=== PATIENT | male | born 1970 | race Caucasian/White ===

== ENCOUNTER 2019-07-27 03:05 | Observation (INO) ==
[2019-07-27] MEDS ORDERED: Aspirin 81 MG TAB.CHEW PO ONE (03:12)
[2019-07-27 03:42] LABS: Basophils # 0.1 K/mcL (0.0-0.2); Basophils % 0.4 %; Eosinophils # 0.2 K/mcL (0.0-0.6); Eosinophils % 1.9 %; Hematocrit 40.3 % (37.5-50.1); Hemoglobin 14.5 g/dL (12.9-16.9); Immature Granulocytes % 0.4 % (0-4); Lymphocytes # 2.5 K/mcL (0.6-4.6); Lymphocytes % 21.7 %; Mean Corpuscular Volume 86.1 fL (83.0-100.0); Mean Platelet Volume 9.5 fL (9.4-12.4); Monocytes # 1.2 K/mcL (0.0-1.3); Monocytes % 10.2 %; Neutrophils # 7.4 K/mcL (1.6-8.9); Platelet Count 262 K/mcL (140-400); Red Blood Count 4.68 M/mcL (4.19-5.50); Red Cell Distribution Width 11.8 % (11.5-14.5); Segmented Neutrophils % 65.4 %; White Blood Count 11.3 K/mcL (4.3-11.1)
[2019-07-27 03:52] LABS: INR 1.1; Prothrombin Time 12.5 Seconds (9.4-12.1)
[2019-07-27 03:55] LABS: Activated Partial Thrombo Time 30.8 Seconds (26.0-36.0)
[2019-07-27 04:12] LABS: BUN/Creatinine Ratio 19 (6-26); Blood Urea Nitrogen 23 mg/dL (6-20); Calcium 9.4 mg/dL (8.6-10.3); Carbon Dioxide 29 mEq/L (23-29); Chloride 99 mEq/L (98-107); Glucose 92 mg/dL (70-105); Osmolality,Calculated 285 (280-300); Potassium 3.2 mEq/L (3.5-5.1); Sodium 136 mEq/L (136-145); Troponin I < 0.03 ng/mL (< 0.04); eGFR For African Americans > 60 (> 60); eGFR For Non-African Americans > 60 (> 60)
[2019-07-27] MEDS ORDERED: Lisinopril 20 MG TABLET PO SCH (09:00)
[2019-07-27] MEDS ORDERED: Budesonide/Formoterol 80/4.5 1 PUFF INH IH SCH (10:00)
[2019-07-27 15:24] VITALS: BP 101/64
== END 2019-07-27 17:39 | disposition home or self-care (01) ==
LOC: EMEROOARM 03:05 → 3BNU 03:05 → SUATTDRO 05:31 → 3BNU 05:47
PROVIDERS: ADMIT Family Medicine; ATTEND Internal Medicine

== ENCOUNTER 2020-12-06 18:54 | Observation (INO) ==
[2020-12-06 21:54] LABS: Hemoglobin 14.8 g/dL (12.9-16.9); Mean Corpuscular HGB Conc 34.4 g/dL (31.6-35.5); Mean Platelet Volume 10.7 fL (9.4-12.4); Platelet Count 281 K/mcL (140-400); Red Blood Count 4.94 M/mcL (4.19-5.50); Red Cell Distribution Width 12.1 % (11.5-14.5); White Blood Count 8.5 K/mcL (4.3-11.1)
[2020-12-06 22:03] LABS: BUN/Creatinine Ratio 17 (6-26); Blood Urea Nitrogen 18 mg/dL (6-20); Calcium 9.3 mg/dL (8.6-10.3); Carbon Dioxide 30 mEq/L (23-29); Chloride 98 mEq/L (98-107); Glucose 132 mg/dL (70-105); Osmolality,Calculated 288 (280-300); Sodium 137 mEq/L (136-145); eGFR For African Americans > 60 (> 60); eGFR For Non-African Americans > 60 (> 60)
[2020-12-06] MEDS ORDERED: Potassium Chloride Elixir 20 MEQ/15 ML UDC PO ONE (22:17)
[2020-12-06] MEDS ORDERED: Isovue-370 500 ML BOTTLE IVP ONE (22:19)
[2020-12-06] MEDS ORDERED: Naloxone 0.4 MG/ML INJ IVP PRN (23:58)
[2020-12-07 04:53] LABS: Hematocrit 40.7 % (37.5-50.1); Hemoglobin 13.9 g/dL (12.9-16.9); Mean Corpuscular HGB Conc 34.2 g/dL (31.6-35.5); Mean Corpuscular Hemoglobin 29.8 pg (28.0-33.3); Mean Corpuscular Volume 87.3 fL (83.0-100.0); Mean Platelet Volume 10.4 fL (9.4-12.4); Platelet Count 264 K/mcL (140-400); Red Blood Count 4.66 M/mcL (4.19-5.50); Red Cell Distribution Width 12.3 % (11.5-14.5); White Blood Count 9.1 K/mcL (4.3-11.1)
[2020-12-07 05:11] LABS: BUN/Creatinine Ratio 16 (6-26); Blood Urea Nitrogen 15 mg/dL (6-20); Calcium 9.2 mg/dL (8.6-10.3); Carbon Dioxide 31 mEq/L (23-29); Chloride 100 mEq/L (98-107); Glucose 142 mg/dL (70-105); Osmolality,Calculated 289 (280-300); Potassium 3.7 mEq/L (3.5-5.1); Sodium 138 mEq/L (136-145); Troponin I < 0.03 ng/mL (< 0.04); eGFR For African Americans > 60 (> 60); eGFR For Non-African Americans > 60 (> 60)
[2020-12-07] MEDS ORDERED: Pantoprazole 40 MG VIAL IVP SCH (06:00)
[2020-12-07 06:36] VITALS: BP 103/80
== END 2020-12-07 11:15 | disposition home or self-care (01) ==
LOC: EMEROOARM 18:54 → 2NENU 18:54 → SUATTDRO 22:55 → 2NENU 22:56
PROVIDERS: ADMIT Internal Medicine; ATTEND Internal Medicine

== ENCOUNTER 2021-06-30 06:34 | Inpatient (IN) ==
[2021-06-30] MEDS ORDERED: CeFAZolin Syr 2,000MG/20 ML 2,000 MG/20 ML SYRINGE IVPB ONE (07:16)
[2021-06-30] MEDS ORDERED: Ringers Solution, Lactated 1,000 ML IVC SCH (07:30)
[2021-06-30] MEDS ORDERED: *HR* Rocuronium Bromide 50 MG/5 ML VIAL ONE ×2 (07:52→09:20)
[2021-06-30] MEDS ORDERED: *HR* Midazolam HCl 2 MG/2 ML VIAL ONE (07:52)
[2021-06-30] MEDS ORDERED: *HR* FentaNYL (PF) 100 MCG/2 ML VIAL ONE ×2 (07:52→08:42)
[2021-06-30] MEDS ORDERED: *HR* Succinylcholine 200 MG/10 ML VIAL IVP ONE (07:52)
[2021-06-30] MEDS ORDERED: Lidocaine -MPF 2% 5 ML VIAL ONE (07:52)
[2021-06-30] MEDS ORDERED: *HR* Propofol 200 MG/20 ML VIAL IVP ONE (07:53)
[2021-06-30] MEDS ORDERED: Promethazine 6.25 MG in Water for inj. (sterile) 20 ML IVPB PRN (08:00)
[2021-06-30] MEDS ORDERED: *HR* OxyCODONE Immed Rel 5 MG TABLET PO PRN (08:00)
[2021-06-30] MEDS ORDERED: Ondansetron 4 MG/2 ML VIAL IVP PRN (08:00)
[2021-06-30] MEDS ORDERED: EPHEDrine 50 MG/ML VIAL ONE (08:28)
[2021-06-30] MEDS ORDERED: Ondansetron 4 MG/2 ML VIAL ONE (08:30)
[2021-06-30] MEDS ORDERED: *HR* Labetalol 20 MG/4 ML SYRINGE IVP ONE (08:53)
[2021-06-30] MEDS ORDERED: Sugammadex Sodium 200 MG/2 ML VIAL IV ONE (09:15)
[2021-06-30] MEDS: *HR* HYDROmorphone PF 0.5 MG/0.5 ML SYRINGE IVP PRN ×4 (10:36→10:51)
[2021-06-30] MEDS ORDERED: *HR* HYDROmorphone PF 0.5 MG/0.5 ML SYRINGE IVP PRN (11:58)
[2021-06-30] MEDS: *HR* HYDROmorphone PCA *PREMADE* 20 MG/1MG/ML (20mL) PCA VIAL IVC SCH (12:16)
[2021-06-30] MEDS ORDERED: *HR* HYDROmorphone PCA *PREMADE* 20 MG/1MG/ML (20mL) PCA VIAL IVC SCH (15:20)
[2021-06-30] MEDS: *HR* Heparin 5,000 UNIT/ML VIAL SQ SCH ×2 (15:48→20:52)
[2021-06-30] MEDS: 0.9 % Sodium Chloride 1,000 ML IVC SCH (15:49)
[2021-06-30] MEDS: Primidone 50 MG TABLET PO SCH ×2 (15:49→20:51)
[2021-06-30] MEDS: Pantoprazole 40 MG VIAL IVP SCH (20:51)
[2021-06-30] MEDS ORDERED: NON-FORMULARY MEDICATION 1 EACH EACH (Fluticasone/Salmeterol [Advair 100-50 Diskus] 1 EACH IH SCH (21:00)
[2021-07-01] MEDS: Budesonide/Formoterol 160/4.5 1 PUFF INH IH SCH ×3 (00:17→20:45)
[2021-07-01 03:32] LABS: Hematocrit 41.3 % (37.5-50.1); Hemoglobin 14.4 g/dL (12.9-16.9); Mean Corpuscular HGB Conc 34.9 g/dL (31.6-35.5); Mean Corpuscular Hemoglobin 30.6 pg (28.0-33.3); Mean Corpuscular Volume 87.9 fL (83.0-100.0); Mean Platelet Volume 10.8 fL (9.4-12.4); Platelet Count 328 K/mcL (140-400); Red Cell Distribution Width 12.3 % (11.5-14.5); White Blood Count 17.5 K/mcL (4.3-11.1)
[2021-07-01 03:53] LABS: BUN/Creatinine Ratio 18 (6-26); Blood Urea Nitrogen 22 mg/dL (6-20); Calcium 8.5 mg/dL (8.6-10.3); Carbon Dioxide 29 mEq/L (23-29); Chloride 97 mEq/L (98-107); Glucose 118 mg/dL (70-105); Magnesium 1.2 mg/dL (1.6-2.6); Osmolality,Calculated 288 (280-300); Potassium 3.6 mEq/L (3.5-5.1); Sodium 137 mEq/L (136-145); eGFR For African Americans > 60 (> 60); eGFR For Non-African Americans > 60 (> 60)
[2021-07-01] MEDS: 0.9 % Sodium Chloride 1,000 ML IVC SCH ×2 (04:22→15:31)
[2021-07-01] MEDS: *HR* Heparin 5,000 UNIT/ML VIAL SQ SCH ×3 (06:18→21:33)
[2021-07-01] MEDS: Pantoprazole 40 MG VIAL IVP SCH ×2 (06:18→18:07)
[2021-07-01] MEDS: *HR* HYDROmorphone PCA *PREMADE* 20 MG/1MG/ML (20mL) PCA VIAL IVC SCH ×2 (07:15→15:56)
[2021-07-01] MEDS ORDERED: Potassium Chloride Elixir 20 MEQ/15 ML UDC PO ONE (08:12)
[2021-07-01] MEDS ORDERED: lisinopriL 20 MG TABLET PO SCH (09:00)
[2021-07-01] MEDS: Aspirin Enteric Coated 81 MG Tablet PO SCH (10:50)
[2021-07-01] MEDS: Primidone 50 MG TABLET PO SCH ×3 (10:51→21:33)
[2021-07-01] MEDS: Fluticasone Propionate Nasal 50 MCG/SPRAY BOTTLE NS SCH (15:31)
[2021-07-02] MEDS: *HR* HYDROmorphone PCA *PREMADE* 20 MG/1MG/ML (20mL) PCA VIAL IVC SCH ×2 (03:24→13:24)
[2021-07-02] MEDS: 0.9 % Sodium Chloride 1,000 ML IVC SCH ×4 (03:24→22:57)
[2021-07-02] MEDS: *HR* Heparin 5,000 UNIT/ML VIAL SQ SCH ×3 (06:32→20:57)
[2021-07-02] MEDS: Pantoprazole 40 MG VIAL IVP SCH ×2 (06:32→17:15)
[2021-07-02] MEDS: Budesonide/Formoterol 160/4.5 1 PUFF INH IH SCH ×2 (08:12→21:18)
[2021-07-02] MEDS: Primidone 50 MG TABLET PO SCH ×3 (08:39→20:57)
[2021-07-02] MEDS: Aspirin Enteric Coated 81 MG Tablet PO SCH (08:39)
[2021-07-02] MEDS: lisinopriL 20 MG TABLET PO SCH (08:40)
[2021-07-02] MEDS: Fluticasone Propionate Nasal 50 MCG/SPRAY BOTTLE NS SCH (08:40)
[2021-07-02] MEDS: Ondansetron 4 MG/2 ML VIAL IVP PRN (18:05)
[2021-07-02] MEDS ORDERED: Amiodarone Premix 360 MG/200 ML BAG IVC ONE (20:54)
[2021-07-02] MEDS ORDERED: Amiodarone Premix 150 MG/100 ML BAG IVPB ONE ×2 (20:54→21:00)
[2021-07-02] MEDS ORDERED: Perflutren Lipid Microsphere 1.3 ML in 0.9 % Sodium Chloride 8.7 ML IVP PRN (21:20)
[2021-07-03] MEDS: Amiodarone Premix 360 MG/200 ML BAG IVC SCH ×2 (03:47→16:52)
[2021-07-03 04:55] LABS: Hematocrit 38.5 % (37.5-50.1); Hemoglobin 13.3 g/dL (12.9-16.9); Mean Corpuscular HGB Conc 34.5 g/dL (31.6-35.5); Mean Corpuscular Hemoglobin 30.5 pg (28.0-33.3); Mean Corpuscular Volume 88.3 fL (83.0-100.0); Mean Platelet Volume 10.9 fL (9.4-12.4); Platelet Count 300 K/mcL (140-400); Red Blood Count 4.36 M/mcL (4.19-5.50); Red Cell Distribution Width 12.3 % (11.5-14.5); White Blood Count 21.2 K/mcL (4.3-11.1)
[2021-07-03 05:14] LABS: BUN/Creatinine Ratio 21 (6-26); Blood Urea Nitrogen 17 mg/dL (6-20); Calcium 8.4 mg/dL (8.6-10.3); Carbon Dioxide 25 mEq/L (23-29); Chloride 93 mEq/L (98-107); Glucose 116 mg/dL (70-105); Magnesium 1.8 mg/dL (1.6-2.6); Osmolality,Calculated 269 (280-300); Potassium 3.4 mEq/L (3.5-5.1); Sodium 128 mEq/L (136-145); eGFR For African Americans > 60 (> 60); eGFR For Non-African Americans > 60 (> 60)
[2021-07-03] MEDS: *HR* Heparin 5,000 UNIT/ML VIAL SQ SCH ×3 (06:34→22:45)
[2021-07-03] MEDS: 0.9 % Sodium Chloride 1,000 ML IVC SCH ×3 (07:05→18:39)
[2021-07-03] MEDS: Budesonide/Formoterol 160/4.5 1 PUFF INH IH SCH ×2 (07:46→19:25)
[2021-07-03] MEDS: Ondansetron 4 MG/2 ML VIAL IVP PRN ×2 (08:14→18:39)
[2021-07-03] MEDS ORDERED: Magnesium Sulfate 1 GM/102 ML PIGGYBACK IVPB ONE (08:24)
[2021-07-03] MEDS: Primidone 50 MG TABLET PO SCH ×3 (12:40→19:41)
[2021-07-03] MEDS: Aspirin Enteric Coated 81 MG Tablet PO SCH (12:40)
[2021-07-03] MEDS: Fluticasone Propionate Nasal 50 MCG/SPRAY BOTTLE NS SCH (12:40)
[2021-07-03] MEDS: lisinopriL 20 MG TABLET PO SCH (12:40)
[2021-07-03 15:16] LABS: Estimated Average Glucose 108 mg/dl; Hemoglobin A1C 5.4 %
[2021-07-03] MEDS: *HR* HYDROmorphone PCA *PREMADE* 20 MG/1MG/ML (20mL) PCA VIAL IVC SCH (17:37)
[2021-07-03] MEDS: Pantoprazole 40 MG VIAL IVP SCH (18:38)
[2021-07-04] MEDS: 0.9 % Sodium Chloride 1,000 ML IVC SCH ×3 (02:59→22:30)
[2021-07-04] MEDS: Pantoprazole 40 MG VIAL IVP SCH ×2 (04:07→19:00)
[2021-07-04] MEDS: Ondansetron 4 MG/2 ML VIAL IVP PRN (04:07)
[2021-07-04] MEDS: *HR* Heparin 5,000 UNIT/ML VIAL SQ SCH ×3 (04:08→20:34)
[2021-07-04] MEDS: Amiodarone Premix 360 MG/200 ML BAG IVC SCH (06:37)
[2021-07-04] MEDS: Budesonide/Formoterol 160/4.5 1 PUFF INH IH SCH ×2 (08:04→19:46)
[2021-07-04] MEDS: Primidone 50 MG TABLET PO SCH ×3 (08:31→20:36)
[2021-07-04] MEDS: Aspirin Enteric Coated 81 MG Tablet PO SCH (08:31)
[2021-07-04] MEDS: Potassium Chloride Elixir 20 MEQ/15 ML UDC PO ONE ×2 (08:32→18:59)
[2021-07-04] MEDS: Fluticasone Propionate Nasal 50 MCG/SPRAY BOTTLE NS SCH (08:36)
[2021-07-04] MEDS: Ampicillin/Sulbactam 1,500 MG in 0.9 % Sodium Chloride Mini Bag 100 ML IVPB SCH ×2 (10:56→20:35)
[2021-07-04] MEDS: *HR* HYDROcodone/Acet 5/325 mg TABLET PO PRN ×3 (10:57→20:36)
[2021-07-04] MEDS ORDERED: Milk and Molasses Enema 200 ML RC ONE (12:52)
[2021-07-04 13:27] LABS: Hematocrit 31.7 % (37.5-50.1); Mean Corpuscular HGB Conc 34.1 g/dL (31.6-35.5); Mean Corpuscular Hemoglobin 30.4 pg (28.0-33.3); Mean Corpuscular Volume 89.3 fL (83.0-100.0); Mean Platelet Volume 10.3 fL (9.4-12.4); Platelet Count 328 K/mcL (140-400); Red Blood Count 3.55 M/mcL (4.19-5.50); Red Cell Distribution Width 12.6 % (11.5-14.5); White Blood Count 11.7 K/mcL (4.3-11.1)
[2021-07-04 13:39] LABS: Hemoglobin 10.8 g/dL (12.9-16.9)
[2021-07-04 14:07] LABS: BUN/Creatinine Ratio 25 (6-26); Blood Urea Nitrogen 16 mg/dL (6-20); Calcium 6.8 mg/dL (8.6-10.3); Carbon Dioxide 24 mEq/L (23-29); Chloride 103 mEq/L (98-107); Glucose 100 mg/dL (70-105); Magnesium 1.3 mg/dL (1.6-2.6); Osmolality,Calculated 279 (280-300); Potassium 2.9 mEq/L (3.5-5.1); Sodium 134 mEq/L (136-145); eGFR For African Americans > 60 (> 60); eGFR For Non-African Americans > 60 (> 60)
[2021-07-04] MEDS ORDERED: Potassium Chloride Elixir 20 MEQ/15 ML UDC PO ONE (16:49)
[2021-07-04] MEDS: Metoclopramide 10 MG/2 ML VIAL IVP SCH (22:30)
[2021-07-05] MEDS: Ampicillin/Sulbactam 1,500 MG in 0.9 % Sodium Chloride Mini Bag 100 ML IVPB SCH ×4 (00:26→19:03)
[2021-07-05] MEDS: *HR* HYDROcodone/Acet 5/325 mg TABLET PO PRN ×4 (00:27→15:03)
[2021-07-05 01:01] LABS: Hematocrit 35.5 % (37.5-50.1); Hemoglobin 12.1 g/dL (12.9-16.9); Mean Corpuscular HGB Conc 34.1 g/dL (31.6-35.5); Mean Corpuscular Hemoglobin 30.6 pg (28.0-33.3); Mean Corpuscular Volume 89.6 fL (83.0-100.0); Mean Platelet Volume 10.4 fL (9.4-12.4); Platelet Count 391 K/mcL (140-400); Red Blood Count 3.96 M/mcL (4.19-5.50); Red Cell Distribution Width 12.6 % (11.5-14.5); White Blood Count 11.1 K/mcL (4.3-11.1)
[2021-07-05 01:24] LABS: BUN/Creatinine Ratio 23 (6-26); Blood Urea Nitrogen 19 mg/dL (6-20); Calcium 8.2 mg/dL (8.6-10.3); Carbon Dioxide 28 mEq/L (23-29); Chloride 97 mEq/L (98-107); Glucose 106 mg/dL (70-105); Magnesium 2.1 mg/dL (1.6-2.6); Osmolality,Calculated 279 (280-300); Potassium 3.4 mEq/L (3.5-5.1); Sodium 133 mEq/L (136-145); eGFR For African Americans > 60 (> 60); eGFR For Non-African Americans > 60 (> 60)
[2021-07-05] MEDS: *HR* Heparin 5,000 UNIT/ML VIAL SQ SCH ×3 (04:55→20:47)
[2021-07-05] MEDS: Metoclopramide 10 MG/2 ML VIAL IVP SCH ×3 (04:55→15:04)
[2021-07-05] MEDS: Pantoprazole 40 MG VIAL IVP SCH ×2 (04:56→19:03)
[2021-07-05] MEDS: Budesonide/Formoterol 160/4.5 1 PUFF INH IH SCH ×2 (08:00→20:14)
[2021-07-05] MEDS: 0.9 % Sodium Chloride 1,000 ML IVC SCH ×2 (08:06→19:05)
[2021-07-05] MEDS: Aspirin Enteric Coated 81 MG Tablet PO SCH (08:08)
[2021-07-05] MEDS: Primidone 50 MG TABLET PO SCH ×3 (08:08→20:47)
[2021-07-05] MEDS: Fluticasone Propionate Nasal 50 MCG/SPRAY BOTTLE NS SCH (11:46)
[2021-07-05] MEDS ORDERED: Potassium Chloride Elixir 20 MEQ/15 ML UDC PO ONE (13:25)
[2021-07-05] MEDS: *HR* HYDROcodone/Acet 7.5/325 mg TABLET PO PRN ×2 (19:02→22:50)
[2021-07-06] MEDS: Ampicillin/Sulbactam 1,500 MG in 0.9 % Sodium Chloride Mini Bag 100 ML IVPB SCH ×2 (00:03→06:12)
[2021-07-06 01:37] LABS: Hematocrit 31.9 % (37.5-50.1); Hemoglobin 10.9 g/dL (12.9-16.9); Mean Corpuscular HGB Conc 34.2 g/dL (31.6-35.5); Mean Corpuscular Hemoglobin 30.4 pg (28.0-33.3); Mean Corpuscular Volume 89.1 fL (83.0-100.0); Mean Platelet Volume 10.6 fL (9.4-12.4); Platelet Count 391 K/mcL (140-400); Red Blood Count 3.58 M/mcL (4.19-5.50); Red Cell Distribution Width 12.5 % (11.5-14.5)
[2021-07-06 01:59] LABS: BUN/Creatinine Ratio 22 (6-26); Blood Urea Nitrogen 16 mg/dL (6-20); Calcium 7.8 mg/dL (8.6-10.3); Carbon Dioxide 26 mEq/L (23-29); Chloride 98 mEq/L (98-107); Glucose 85 mg/dL (70-105); Magnesium 1.4 mg/dL (1.6-2.6); Osmolality,Calculated 278 (280-300); Potassium 2.9 mEq/L (3.5-5.1); Sodium 134 mEq/L (136-145); eGFR For African Americans > 60 (> 60); eGFR For Non-African Americans > 60 (> 60)
[2021-07-06] MEDS: *HR* HYDROcodone/Acet 7.5/325 mg TABLET PO PRN ×5 (03:05→19:51)
[2021-07-06] MEDS: *HR* Heparin 5,000 UNIT/ML VIAL SQ SCH ×3 (06:12→21:22)
[2021-07-06] MEDS: Pantoprazole 40 MG VIAL IVP SCH ×2 (06:12→17:35)
[2021-07-06] MEDS: 0.9 % Sodium Chloride 1,000 ML IVC SCH ×4 (06:14→15:45)
[2021-07-06] MEDS: Budesonide/Formoterol 160/4.5 1 PUFF INH IH SCH ×2 (07:49→21:19)
[2021-07-06] MEDS: Aspirin Enteric Coated 81 MG Tablet PO SCH (08:33)
[2021-07-06] MEDS: Primidone 50 MG TABLET PO SCH ×3 (08:33→21:22)
[2021-07-06] MEDS: Fluticasone Propionate Nasal 50 MCG/SPRAY BOTTLE NS SCH (09:27)
[2021-07-06] MEDS: Potassium Chloride Elixir 20 MEQ/15 ML UDC PO SCH ×2 (09:27→21:21)
[2021-07-07] MEDS: *HR* HYDROcodone/Acet 7.5/325 mg TABLET PO PRN ×6 (00:06→21:37)
[2021-07-07] MEDS: 0.9 % Sodium Chloride 1,000 ML IVC SCH ×3 (00:12→21:36)
[2021-07-07] MEDS: Pantoprazole 40 MG VIAL IVP SCH ×2 (05:23→17:32)
[2021-07-07] MEDS: *HR* Heparin 5,000 UNIT/ML VIAL SQ SCH ×3 (05:24→21:37)
[2021-07-07] MEDS: Aspirin Enteric Coated 81 MG Tablet PO SCH (08:14)
[2021-07-07] MEDS: Primidone 50 MG TABLET PO SCH ×3 (08:14→21:37)
[2021-07-07] MEDS: Fluticasone Propionate Nasal 50 MCG/SPRAY BOTTLE NS SCH (08:15)
[2021-07-07 09:14] LABS: Hematocrit 32.3 % (37.5-50.1); Hemoglobin 10.6 g/dL (12.9-16.9); Mean Corpuscular HGB Conc 32.8 g/dL (31.6-35.5); Mean Corpuscular Hemoglobin 30.5 pg (28.0-33.3); Mean Corpuscular Volume 93.1 fL (83.0-100.0); Mean Platelet Volume 10.2 fL (9.4-12.4); Platelet Count 342 K/mcL (140-400); Red Blood Count 3.47 M/mcL (4.19-5.50); Red Cell Distribution Width 12.7 % (11.5-14.5); White Blood Count 6.7 K/mcL (4.3-11.1)
[2021-07-07 09:29] LABS: BUN/Creatinine Ratio 16 (6-26); Blood Urea Nitrogen 11 mg/dL (6-20); Calcium 7.1 mg/dL (8.6-10.3); Carbon Dioxide 21 mEq/L (23-29); Chloride 105 mEq/L (98-107); Glucose 90 mg/dL (70-105); Magnesium 1.5 mg/dL (1.6-2.6); Osmolality,Calculated 273 (280-300); Potassium 3.1 mEq/L (3.5-5.1); Sodium 132 mEq/L (136-145); eGFR For African Americans > 60 (> 60); eGFR For Non-African Americans > 60 (> 60)
[2021-07-07] MEDS ORDERED: Lidocaine -MPF 1% 5 ML AMPUL INFILT ONE (13:11)
[2021-07-07] MEDS: Clinimix E 5%-15% SOLUTION 2,000 ML with MVI, adult with vitamin K 10 ML IV SCH (17:33)
[2021-07-08 00:55] LABS: Hematocrit 31.8 % (37.5-50.1); Mean Corpuscular HGB Conc 34.6 g/dL (31.6-35.5); Mean Corpuscular Hemoglobin 30.8 pg (28.0-33.3); Mean Corpuscular Volume 89.1 fL (83.0-100.0); Platelet Count 386 K/mcL (140-400); Red Blood Count 3.57 M/mcL (4.19-5.50); Red Cell Distribution Width 12.6 % (11.5-14.5)
[2021-07-08 01:11] LABS: BUN/Creatinine Ratio 16 (6-26); Blood Urea Nitrogen 11 mg/dL (6-20); Calcium 7.6 mg/dL (8.6-10.3); Carbon Dioxide 26 mEq/L (23-29); Chloride 100 mEq/L (98-107); Glucose 118 mg/dL (70-105); Magnesium 1.8 mg/dL (1.6-2.6); Osmolality,Calculated 276 (280-300); Phosphorous 1.2 mg/dL (2.7-4.5); Potassium 3.2 mEq/L (3.5-5.1); Sodium 133 mEq/L (136-145); eGFR For African Americans > 60 (> 60); eGFR For Non-African Americans > 60 (> 60)
[2021-07-08] MEDS: *HR* HYDROcodone/Acet 7.5/325 mg TABLET PO PRN ×5 (01:50→23:16)
[2021-07-08] MEDS: Pantoprazole 40 MG VIAL IVP SCH ×2 (06:04→18:17)
[2021-07-08] MEDS: *HR* Heparin 5,000 UNIT/ML VIAL SQ SCH ×3 (06:04→23:17)
[2021-07-08] MEDS: Aspirin Enteric Coated 81 MG Tablet PO SCH (09:22)
[2021-07-08 09:57] LABS: Triglycerides 107 mg/dL (< 150)
[2021-07-08] MEDS ORDERED: Potassium Phosphate 44 MEQ in 0.9 % Sodium Chloride 250 ML IVPB ONE (10:30)
[2021-07-08] MEDS ORDERED: *HR* Dextrose 50 % in Water (Syg) 50 ML SYRINGE IVP PRN (10:31)
[2021-07-08] MEDS ORDERED: D5% in Water 1,000 ML IVC PRN (10:31)
[2021-07-08] MEDS ORDERED: Dextrose Gel 15 GM/37.5 ML TUBE PO PRN ×2 (10:31)
[2021-07-08] MEDS ORDERED: D10% in Water 500 ML IVC PRN (10:34)
[2021-07-08] MEDS ORDERED: AMINO ACIDS IV SCH (11:00)
[2021-07-08] MEDS ORDERED: PARENTERAL AMINO ACID 10% IV SCH (11:00)
[2021-07-08] MEDS ORDERED: [UNRECOGNIZED DRUG - OTHER] IV SCH (11:00)
[2021-07-08] MEDS ORDERED: MVI IV SCH (11:00)
[2021-07-08] MEDS ORDERED: DEXTROSE 15% IV SCH (11:00)
[2021-07-08] MEDS: Fluticasone Propionate Nasal 50 MCG/SPRAY BOTTLE NS SCH (13:34)
[2021-07-08] MEDS: Primidone 50 MG TABLET PO SCH ×3 (13:38→19:58)
[2021-07-08] MEDS: Insulin LISPRO 300 UNITS/3 ML VIAL SUBQ SCH ×4 (13:41→23:16)
[2021-07-08] MEDS ORDERED: Clinimix E 5%-15% SOLUTION 2,000 ML with MVI, adult with vitamin K 10 ML IVC SCH (17:00)
[2021-07-08] MEDS: Fat Emulsion 250 ML IVPB SCH (18:00)
[2021-07-08] MEDS: 0.9 % Sodium Chloride 1,000 ML IVC SCH (18:12)
[2021-07-09 03:52] LABS: Basophils # 0.1 K/mcL (0.0-0.2); Basophils % 0.6 %; Eosinophils # 0.2 K/mcL (0.0-0.6); Eosinophils % 1.2 %; Hemoglobin 11.2 g/dL (12.9-16.9); Immature Granulocytes % 2.7 % (0-4); Lymphocytes # 1.5 K/mcL (0.6-4.6); Lymphocytes % 12.4 %; Mean Corpuscular Hemoglobin 31.2 pg (28.0-33.3); Mean Corpuscular Volume 89.1 fL (83.0-100.0); Mean Platelet Volume 10.8 fL (9.4-12.4); Monocytes # 1.7 K/mcL (0.0-1.3); Monocytes % 14.2 %; Neutrophils # 8.3 K/mcL (1.6-8.9); Platelet Count 403 K/mcL (140-400); Red Blood Count 3.59 M/mcL (4.19-5.50); Red Cell Distribution Width 12.7 % (11.5-14.5); Segmented Neutrophils % 68.9 %
[2021-07-09 03:53] LABS: White Blood Count 12.1 K/mcL (4.3-11.1)
[2021-07-09 04:09] LABS: BUN/Creatinine Ratio 15 (6-26); Blood Urea Nitrogen 10 mg/dL (6-20); Calcium 8.1 mg/dL (8.6-10.3); Carbon Dioxide 29 mEq/L (23-29); Chloride 100 mEq/L (98-107); Glucose 134 mg/dL (70-105); Magnesium 1.7 mg/dL (1.6-2.6); Osmolality,Calculated 277 (280-300); Phosphorous 1.8 mg/dL (2.7-4.5); Potassium 3.1 mEq/L (3.5-5.1); Sodium 133 mEq/L (136-145); eGFR For African Americans > 60 (> 60); eGFR For Non-African Americans > 60 (> 60)
[2021-07-09] MEDS: Insulin LISPRO 300 UNITS/3 ML VIAL SUBQ SCH ×5 (04:15→20:20)
[2021-07-09] MEDS: *HR* HYDROcodone/Acet 7.5/325 mg TABLET PO PRN ×5 (04:30→22:25)
[2021-07-09] MEDS: *HR* Heparin 5,000 UNIT/ML VIAL SQ SCH ×3 (06:01→20:21)
[2021-07-09] MEDS: Pantoprazole 40 MG VIAL IVP SCH ×2 (06:01→17:46)
[2021-07-09] MEDS: Aspirin Enteric Coated 81 MG Tablet PO SCH (10:12)
[2021-07-09] MEDS: Primidone 50 MG TABLET PO SCH ×3 (10:13→20:21)
[2021-07-09] MEDS: Fluticasone Propionate Nasal 50 MCG/SPRAY BOTTLE NS SCH ×2 (10:15→10:19)
[2021-07-09] MEDS: Clinimix E 5%-15% SOLUTION 2,000 ML with MVI, adult with vitamin K 10 ML IV SCH (13:58)
[2021-07-09] MEDS ORDERED: Clinimix E 5%-15% SOLUTION 2,000 ML with MVI, adult with vitamin K 10 ML IVC SCH (17:00)
[2021-07-09] MEDS: 0.9 % Sodium Chloride 1,000 ML IVC SCH (17:41)
[2021-07-09] MEDS: Fat Emulsion 250 ML IVPB SCH (17:41)
[2021-07-10] MEDS: Insulin LISPRO 300 UNITS/3 ML VIAL SUBQ SCH ×6 (00:20→20:08)
[2021-07-10] MEDS: *HR* HYDROcodone/Acet 7.5/325 mg TABLET PO PRN ×5 (03:15→23:51)
[2021-07-10 05:30] LABS: Basophils # 0.1 K/mcL (0.0-0.2); Eosinophils # 0.2 K/mcL (0.0-0.6); Eosinophils % 1.5 %; Hematocrit 34.3 % (37.5-50.1); Hemoglobin 11.6 g/dL (12.9-16.9); Immature Granulocytes % 5.8 % (0-4); Lymphocytes # 1.6 K/mcL (0.6-4.6); Lymphocytes % 11.2 %; Mean Corpuscular HGB Conc 33.8 g/dL (31.6-35.5); Mean Corpuscular Hemoglobin 30.4 pg (28.0-33.3); Mean Corpuscular Volume 89.8 fL (83.0-100.0); Mean Platelet Volume 9.9 fL (9.4-12.4); Monocytes % 12.2 %; Neutrophils # 9.8 K/mcL (1.6-8.9); Platelet Count 420 K/mcL (140-400); Red Blood Count 3.82 M/mcL (4.19-5.50); Segmented Neutrophils % 68.3 %; White Blood Count 14.3 K/mcL (4.3-11.1)
[2021-07-10 05:33] LABS: Monocytes # 1.7 K/mcL (0.0-1.3)
[2021-07-10] MEDS: Pantoprazole 40 MG VIAL IVP SCH ×2 (05:44→16:46)
[2021-07-10] MEDS: *HR* Heparin 5,000 UNIT/ML VIAL SQ SCH ×3 (05:45→20:18)
[2021-07-10 05:53] LABS: BUN/Creatinine Ratio 19 (6-26); Blood Urea Nitrogen 12 mg/dL (6-20); Calcium 8.4 mg/dL (8.6-10.3); Carbon Dioxide 30 mEq/L (23-29); Chloride 101 mEq/L (98-107); Glucose 109 mg/dL (70-105); Magnesium 1.7 mg/dL (1.6-2.6); Osmolality,Calculated 280 (280-300); Phosphorous 2.3 mg/dL (2.7-4.5); Potassium 3.5 mEq/L (3.5-5.1); Sodium 135 mEq/L (136-145); eGFR For African Americans > 60 (> 60); eGFR For Non-African Americans > 60 (> 60)
[2021-07-10] MEDS: Primidone 50 MG TABLET PO SCH ×3 (08:30→19:56)
[2021-07-10] MEDS: Aspirin Enteric Coated 81 MG Tablet PO SCH (08:30)
[2021-07-10] MEDS: Fluticasone Propionate Nasal 50 MCG/SPRAY BOTTLE NS SCH (08:31)
[2021-07-10] MEDS: Albuterol 2.5 MG/3 ML NEBULIZER IH SCH ×3 (10:09→20:59)
[2021-07-10] MEDS ORDERED: lisinopriL 20 MG TABLET PO ONE (16:30)
[2021-07-10] MEDS: 0.9 % Sodium Chloride 1,000 ML IVC SCH (16:42)
[2021-07-10] MEDS: Fat Emulsion 250 ML IVPB SCH (16:49)
[2021-07-10] MEDS ORDERED: Clinimix E 5%-15% SOLUTION 2,000 ML with MVI, adult with vitamin K 10 ML IVC SCH (17:00)
[2021-07-10] MEDS ORDERED: Furosemide 20 MG/2 ML VIAL IVP SCH (21:00)
[2021-07-11] MEDS: Insulin LISPRO 300 UNITS/3 ML VIAL SUBQ SCH ×7 (03:05→23:15)
[2021-07-11] MEDS: Pantoprazole 40 MG VIAL IVP SCH ×2 (03:09→16:57)
[2021-07-11] MEDS: *HR* Heparin 5,000 UNIT/ML VIAL SQ SCH ×3 (03:09→22:24)
[2021-07-11 03:23] LABS: Hematocrit 34.9 % (37.5-50.1); Hemoglobin 11.5 g/dL (12.9-16.9); Mean Corpuscular Hemoglobin 29.7 pg (28.0-33.3); Mean Corpuscular Volume 90.2 fL (83.0-100.0); Mean Platelet Volume 10.2 fL (9.4-12.4); Platelet Count 477 K/mcL (140-400); Red Blood Count 3.87 M/mcL (4.19-5.50); Red Cell Distribution Width 13.1 % (11.5-14.5); White Blood Count 15.4 K/mcL (4.3-11.1)
[2021-07-11 03:48] LABS: BUN/Creatinine Ratio 17 (6-26); Blood Urea Nitrogen 12 mg/dL (6-20); Calcium 8.4 mg/dL (8.6-10.3); Carbon Dioxide 27 mEq/L (23-29); Chloride 101 mEq/L (98-107); Glucose 118 mg/dL (70-105); Magnesium 1.7 mg/dL (1.6-2.6); Osmolality,Calculated 281 (280-300); Phosphorous 2.5 mg/dL (2.7-4.5); Potassium 3.5 mEq/L (3.5-5.1); Sodium 135 mEq/L (136-145); eGFR For African Americans > 60 (> 60); eGFR For Non-African Americans > 60 (> 60)
[2021-07-11] MEDS: *HR* HYDROcodone/Acet 7.5/325 mg TABLET PO PRN ×5 (04:34→23:12)
[2021-07-11] MEDS: Albuterol 2.5 MG/3 ML NEBULIZER IH SCH ×4 (04:40→20:53)
[2021-07-11] MEDS: Aspirin Enteric Coated 81 MG Tablet PO SCH (08:02)
[2021-07-11] MEDS: Primidone 50 MG TABLET PO SCH ×3 (08:03→19:39)
[2021-07-11] MEDS: Fluticasone Propionate Nasal 50 MCG/SPRAY BOTTLE NS SCH (08:03)
[2021-07-11] MEDS ORDERED: Potassium Phosphate 44 MEQ in 0.9 % Sodium Chloride 250 ML IVPB ONE (08:20)
[2021-07-11] MEDS ORDERED: lisinopriL 20 MG TABLET PO SCH (09:00)
[2021-07-11] MEDS ORDERED: Furosemide 20 MG/2 ML VIAL IVP SCH (09:00)
[2021-07-11] MEDS ORDERED: Clinimix E 5%-20% SOLUTION 2,000 ML with MVI, adult with vitamin K 10 ML IVC SCH (17:00)
[2021-07-11] MEDS: Fat Emulsion 250 ML IVPB SCH (17:54)
[2021-07-11] MEDS: lisinopriL 20 MG TABLET PO SCH (19:56)
[2021-07-12] MEDS: *HR* HYDROcodone/Acet 7.5/325 mg TABLET PO PRN (04:02)
[2021-07-12] MEDS: Insulin LISPRO 300 UNITS/3 ML VIAL SUBQ SCH ×5 (04:03→19:57)
[2021-07-12] MEDS: Albuterol 2.5 MG/3 ML NEBULIZER IH SCH ×4 (04:43→20:29)
[2021-07-12] MEDS: Pantoprazole 40 MG VIAL IVP SCH ×2 (05:07→17:06)
[2021-07-12] MEDS: *HR* Heparin 5,000 UNIT/ML VIAL SQ SCH ×3 (05:07→19:57)
[2021-07-12 05:14] LABS: BUN/Creatinine Ratio 22 (6-26); Blood Urea Nitrogen 15 mg/dL (6-20); Calcium 8.5 mg/dL (8.6-10.3); Carbon Dioxide 27 mEq/L (23-29); Chloride 101 mEq/L (98-107); Glucose 116 mg/dL (70-105); Magnesium 1.8 mg/dL (1.6-2.6); Osmolality,Calculated 282 (280-300); Phosphorous 2.8 mg/dL (2.7-4.5); Potassium 3.8 mEq/L (3.5-5.1); Sodium 135 mEq/L (136-145); eGFR For African Americans > 60 (> 60); eGFR For Non-African Americans > 60 (> 60)
[2021-07-12 05:16] LABS: Hematocrit 37.5 % (37.5-50.1); Hemoglobin 12.6 g/dL (12.9-16.9); Mean Corpuscular HGB Conc 33.6 g/dL (31.6-35.5); Mean Corpuscular Hemoglobin 30.7 pg (28.0-33.3); Mean Corpuscular Volume 91.5 fL (83.0-100.0); Mean Platelet Volume 10.6 fL (9.4-12.4); Platelet Count 504 K/mcL (140-400); Red Cell Distribution Width 13.2 % (11.5-14.5); White Blood Count 15.4 K/mcL (4.3-11.1)
[2021-07-12] MEDS: lisinopriL 20 MG TABLET PO SCH (09:21)
[2021-07-12] MEDS: Primidone 50 MG TABLET PO SCH ×3 (09:21→19:57)
[2021-07-12] MEDS: Aspirin Enteric Coated 81 MG Tablet PO SCH (09:21)
[2021-07-12] MEDS: *HR* HYDROcodone/Acet 5/325 mg TABLET PO PRN ×4 (09:21→23:32)
[2021-07-12] MEDS: Fluticasone Propionate Nasal 50 MCG/SPRAY BOTTLE NS SCH (09:37)
[2021-07-12] MEDS ORDERED: Fat Emulsion 250 ML IVPB SCH (17:00)
[2021-07-12] MEDS ORDERED: Clinimix E 5%-20% SOLUTION 2,000 ML IVC SCH (17:00)
[2021-07-12] MEDS: Fat Emulsion 250 ML IVPB SCH (17:06)
[2021-07-13] MEDS: Insulin LISPRO 300 UNITS/3 ML VIAL SUBQ SCH ×7 (00:18→22:58)
[2021-07-13 02:16] LABS: Hematocrit 40.2 % (37.5-50.1); Hemoglobin 13.1 g/dL (12.9-16.9); Mean Corpuscular HGB Conc 32.6 g/dL (31.6-35.5); Mean Corpuscular Hemoglobin 30.2 pg (28.0-33.3); Mean Corpuscular Volume 92.6 fL (83.0-100.0); Mean Platelet Volume 9.9 fL (9.4-12.4); Platelet Count 552 K/mcL (140-400); Red Blood Count 4.34 M/mcL (4.19-5.50); Red Cell Distribution Width 13.1 % (11.5-14.5); White Blood Count 19.4 K/mcL (4.3-11.1)
[2021-07-13 02:45] LABS: BUN/Creatinine Ratio 23 (6-26); Blood Urea Nitrogen 17 mg/dL (6-20); Calcium 8.8 mg/dL (8.6-10.3); Carbon Dioxide 23 mEq/L (23-29); Chloride 101 mEq/L (98-107); Glucose 84 mg/dL (70-105); Magnesium 1.8 mg/dL (1.6-2.6); Osmolality,Calculated 277 (280-300); Phosphorous 2.9 mg/dL (2.7-4.5); Potassium 4.4 mEq/L (3.5-5.1); Sodium 133 mEq/L (136-145); eGFR For African Americans > 60 (> 60); eGFR For Non-African Americans > 60 (> 60)
[2021-07-13] MEDS: Albuterol 2.5 MG/3 ML NEBULIZER IH SCH ×4 (04:02→21:03)
[2021-07-13] MEDS: *HR* Heparin 5,000 UNIT/ML VIAL SQ SCH ×3 (05:28→22:56)
[2021-07-13] MEDS: Pantoprazole 40 MG VIAL IVP SCH ×2 (05:28→17:09)
[2021-07-13] MEDS: *HR* HYDROcodone/Acet 5/325 mg TABLET PO PRN ×3 (08:30→19:52)
[2021-07-13] MEDS: lisinopriL 20 MG TABLET PO SCH (08:31)
[2021-07-13] MEDS: Aspirin Enteric Coated 81 MG Tablet PO SCH (08:31)
[2021-07-13] MEDS: Primidone 50 MG TABLET PO SCH ×3 (08:31→19:40)
[2021-07-13] MEDS: Fluticasone Propionate Nasal 50 MCG/SPRAY BOTTLE NS SCH (08:31)
[2021-07-13] MEDS ORDERED: Clinimix E 5%-20% SOLUTION 2,000 ML with MVI, adult with vitamin K 10 ML IVC SCH (17:00)
[2021-07-13] MEDS: Fat Emulsion 250 ML IVPB SCH (17:08)
[2021-07-13] MEDS: Ondansetron 4 MG/2 ML VIAL IVP PRN (19:19)
[2021-07-14 02:50] LABS: Hemoglobin 13.3 g/dL (12.9-16.9); Mean Corpuscular HGB Conc 32.4 g/dL (31.6-35.5); Mean Corpuscular Hemoglobin 29.8 pg (28.0-33.3); Mean Corpuscular Volume 91.7 fL (83.0-100.0); Mean Platelet Volume 9.4 fL (9.4-12.4); Platelet Count 540 K/mcL (140-400); Red Blood Count 4.47 M/mcL (4.19-5.50); White Blood Count 18.6 K/mcL (4.3-11.1)
[2021-07-14 03:09] LABS: BUN/Creatinine Ratio 22 (6-26); Blood Urea Nitrogen 18 mg/dL (6-20); Calcium 9.2 mg/dL (8.6-10.3); Carbon Dioxide 25 mEq/L (23-29); Chloride 99 mEq/L (98-107); Glucose 85 mg/dL (70-105); Magnesium 1.8 mg/dL (1.6-2.6); Osmolality,Calculated 273 (280-300); Phosphorous 2.9 mg/dL (2.7-4.5); Potassium 4.9 mEq/L (3.5-5.1); Sodium 131 mEq/L (136-145); eGFR For African Americans > 60 (> 60); eGFR For Non-African Americans > 60 (> 60)
[2021-07-14] MEDS: Albuterol 2.5 MG/3 ML NEBULIZER IH SCH ×4 (03:28→19:40)
[2021-07-14] MEDS: *HR* HYDROcodone/Acet 5/325 mg TABLET PO PRN ×3 (03:54→21:17)
[2021-07-14] MEDS: Insulin LISPRO 300 UNITS/3 ML VIAL SUBQ SCH (04:07)
[2021-07-14] MEDS: Pantoprazole 40 MG VIAL IVP SCH (06:14)
[2021-07-14] MEDS: *HR* Heparin 5,000 UNIT/ML VIAL SQ SCH (06:14)
[2021-07-14] MEDS: lisinopriL 20 MG TABLET PO SCH (09:31)
[2021-07-14] MEDS: Aspirin Enteric Coated 81 MG Tablet PO SCH (09:32)
[2021-07-14] MEDS: Fluticasone Propionate Nasal 50 MCG/SPRAY BOTTLE NS SCH (09:32)
[2021-07-14] MEDS: Primidone 50 MG TABLET PO SCH ×3 (09:33→21:17)
[2021-07-14] MEDS: Ondansetron 4 MG/2 ML VIAL IVP PRN ×2 (11:30→21:51)
[2021-07-15] MEDS: *HR* HYDROcodone/Acet 5/325 mg TABLET PO PRN ×2 (02:43→06:48)
[2021-07-15] MEDS: Albuterol 2.5 MG/3 ML NEBULIZER IH SCH ×2 (03:52→09:07)
[2021-07-15 05:00] LABS: Hematocrit 42.4 % (37.5-50.1); Hemoglobin 13.5 g/dL (12.9-16.9); Mean Corpuscular HGB Conc 31.8 g/dL (31.6-35.5); Mean Corpuscular Hemoglobin 29.5 pg (28.0-33.3); Mean Corpuscular Volume 92.6 fL (83.0-100.0); Mean Platelet Volume 9.5 fL (9.4-12.4); Platelet Count 593 K/mcL (140-400); Red Blood Count 4.58 M/mcL (4.19-5.50); Red Cell Distribution Width 13.1 % (11.5-14.5); White Blood Count 16.2 K/mcL (4.3-11.1)
[2021-07-15 05:22] LABS: BUN/Creatinine Ratio 20 (6-26); Blood Urea Nitrogen 17 mg/dL (6-20); Calcium 9.5 mg/dL (8.6-10.3); Carbon Dioxide 25 mEq/L (23-29); Chloride 96 mEq/L (98-107); Glucose 93 mg/dL (70-105); Magnesium 1.7 mg/dL (1.6-2.6); Osmolality,Calculated 271 (280-300); Phosphorous 3.7 mg/dL (2.7-4.5); Potassium 5.4 mEq/L (3.5-5.1); Sodium 130 mEq/L (136-145); eGFR For African Americans > 60 (> 60); eGFR For Non-African Americans > 60 (> 60)
[2021-07-15 08:01] VITALS: BP 113/72; PULSE 84; TEMP 97.6; O2SAT 93
[2021-07-15] MEDS: lisinopriL 20 MG TABLET PO SCH (08:19)
[2021-07-15] MEDS: Primidone 50 MG TABLET PO SCH (08:19)
[2021-07-15] MEDS: Aspirin Enteric Coated 81 MG Tablet PO SCH (08:19)
[2021-07-15] MEDS: Fluticasone Propionate Nasal 50 MCG/SPRAY BOTTLE NS SCH (08:24)
== END 2021-07-15 11:40 | disposition home or self-care (01) | DRG 327 ==
LOC: SAMDAY 06:34 → 3ANU 15:19 → 2NNU 07-02 21:33 → 2NENU 07-03 22:58
PROVIDERS: ADMIT Thoracic Surgery (Cardiothoracic Vascular Surgery); ATTEND Thoracic Surgery (Cardiothoracic Vascular Surgery)

== ENCOUNTER 2022-01-30 07:49 | Inpatient (IN) ==
[2022-01-30] MEDS ORDERED: CeFAZolin Syr 2,000MG/20 ML 2,000 MG/20 ML SYRINGE IVPB ONE (08:21)
[2022-01-30] MEDS ORDERED: Ringers Solution, Lactated 1,000 ML IVC SCH (08:30)
[2022-01-30] MEDS ORDERED: Sugammadex Sodium 200 MG/2 ML VIAL IV ONE (08:58)
[2022-01-30] MEDS ORDERED: *HR* Rocuronium Bromide 50 MG/5 ML VIAL ONE (08:58)
[2022-01-30] MEDS ORDERED: Ondansetron 4 MG/2 ML VIAL ONE (08:58)
[2022-01-30] MEDS ORDERED: *HR* FentaNYL (PF) 100 MCG/2 ML VIAL ONE ×2 (08:58→09:54)
[2022-01-30] MEDS ORDERED: *HR* Midazolam HCl 2 MG/2 ML VIAL ONE (08:58)
[2022-01-30] MEDS ORDERED: *HR* Succinylcholine 200 MG/10 ML VIAL IVP ONE (08:58)
[2022-01-30] MEDS ORDERED: Lidocaine -MPF 2% 2 ML VIAL ONE (08:58)
[2022-01-30] MEDS ORDERED: *HR* Propofol 200 MG/20 ML VIAL IVP ONE (08:59)
[2022-01-30] MEDS ORDERED: Ondansetron 4 MG/2 ML VIAL IVP PRN (09:07)
[2022-01-30] MEDS ORDERED: *HR* OxyCODONE Immed Rel 5 MG TABLET PO PRN ×2 (09:07→14:36)
[2022-01-30] MEDS ORDERED: Acetaminophen IV 1,000 MG/100 ML BAG IVPB ONE (09:37)
[2022-01-30] MEDS ORDERED: *HR* Labetalol 20 MG/4 ML SYRINGE IVP ONE (10:01)
[2022-01-30] MEDS ORDERED: *HR* HYDROMORPHONE 2 MG/ML VIAL ONE (10:13)
[2022-01-30] MEDS: *HR* HYDROmorphone PF 0.5 MG/0.5 ML SYRINGE IVP PRN ×4 (12:11→12:45)
[2022-01-30] MEDS: *HR* Labetalol 20 MG/4 ML SYRINGE IVP PRN ×2 (12:13→12:21)
[2022-01-30] MEDS ORDERED: cloNIDine HCL 0.1 MG TABLET PO ONE (13:03)
[2022-01-30] MEDS: *HR* FentaNYL (PF) 100 MCG/2 ML VIAL IVP PRN ×3 (13:07→13:32)
[2022-01-30] MEDS ORDERED: Naloxone 0.4 MG/ML INJ IVP PRN (14:36)
[2022-01-30] MEDS ORDERED: Albuterol 2.5 MG/3 ML NEBULIZER IH PRN (14:36)
[2022-01-30] MEDS ORDERED: *HR* Metoprolol 5 MG/5 ML VIAL IVP PRN (14:36)
[2022-01-30] MEDS ORDERED: Acetaminophen 325 MG TABLET PO PRN (14:36)
[2022-01-30] MEDS: 0.9 % Sodium Chloride 1,000 ML IVC SCH (15:28)
[2022-01-30] MEDS: CeFAZolin 2 GM/120 ML BAG IVPB SCH ×2 (15:32→23:06)
[2022-01-30] MEDS: *HR* OxyCODONE/APAP 5/325 TABLET PO PRN ×2 (15:39→20:45)
[2022-01-30] MEDS: Ondansetron 4 MG/2 ML VIAL IVP PRN (17:48)
[2022-01-30] MEDS ORDERED: tiZANidine 4 MG TABLET PO SCH (21:00)
[2022-01-30] MEDS: Budesonide/Formoterol 160/4.5 1 PUFF INH IH SCH (21:44)
[2022-01-31] MEDS: Ondansetron 4 MG/2 ML VIAL IVP PRN (02:19)
[2022-01-31] MEDS: 0.9 % Sodium Chloride 1,000 ML IVC SCH (02:20)
[2022-01-31] MEDS: *HR* OxyCODONE/APAP 5/325 TABLET PO PRN ×2 (03:37→08:37)
[2022-01-31] MEDS ORDERED: Famotidine 20 MG TABLET PO SCH (07:30)
[2022-01-31] MEDS: Budesonide/Formoterol 160/4.5 1 PUFF INH IH SCH (08:14)
[2022-01-31] MEDS ORDERED: lisinopriL 20 MG TABLET PO SCH (09:00)
[2022-01-31] MEDS ORDERED: Loratadine 10 MG TABLET PO SCH (09:00)
[2022-01-31 11:46] VITALS: BP 171/94; PULSE 74; TEMP 98.3; O2SAT 97
[2022-01-31] MEDS ORDERED: *HR* Heparin 5,000 UNIT/ML VIAL SQ SCH (18:00)
== END 2022-01-31 13:05 | disposition home or self-care (01) | DRG 355 ==
LOC: SAMDAY 07:49 → 3ANU 14:35
PROVIDERS: ADMIT Surgery; ATTEND Surgery